=== PATIENT | female | born 1990 | race African-American/Black ===

== ENCOUNTER 2017-07-11 15:29 | Emergency (ER) | payer OTHER ==
[~2017-07-11] VITALS: Ht 162.6 cm; Wt 72.6 kg
[2017-07-11 15:44] VITALS: BP 114/76
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
[2017-07-11] MEDS ORDERED: TYLENOL EXTRA500 MG ORAL (18:20)
[2017-07-11 19:15] VITALS: BP 104/80
[2017-07-11 19:25] VITALS: BP 104/80
--- NOTE | 2017-07-12 08:46 | Diagnostic Imaging Report ---
Indication: Reason For Exam: AMS Technique: Continuous helical CT scanning of the head was performed without intravenous contrast material. Axial and coronal 5 mm sections were generated. Radiation dose was minimized using automated exposure control Dose: Total Dose Length Product - DLP 1309.[address] Dose Index - CTDIvol(s) 70.38 mGy. Comparison: none Findings: The ventricular system is normal in size and configuration. There is no shift of midline structures. No abnormal extra-axial fluid collections are noted. There is no evidence of intracerebral bleeding. No other abnormal high or low density areas are noted within the brain. There is mild ethmoid sinus mucosal disease. The calvarium is intact. Impression: Normal CT scan of the head without contrast material. Minimal sinus disease This agrees with the preliminary interpretation provided overnight by [facility]. The CT scanner at [facility] is accredited by the [employer] and the scans are performed using protocols designed to limit radiation exposure to as low as reasonably achievable to attain images of sufficient resolution adequate for diagnostic evaluation.
== END 2017-07-11 19:25 | disposition home or self-care (01) ==
LOC: EDBD 15:29 → EMR 16:00
DX: M79.1 Myalgia (principal); R53.83 Other fatigue; F12.10 Cannabis abuse, uncomplicated; R51 Headache; V43.62XA Car passenger injured in collision with other type car in traffic accident, initial encounter; Y92.410 Unspecified street and highway as the place of occurrence of the external cause
CPT/HCPCS: 70450; 80307; 81025; 82962; 99284